=== PATIENT | male | born 2000 | race Caucasian/White ===

== ENCOUNTER → 2019-03-20 09:42 | Outpatient (CLI) | payer BC, SELFPAY ==
--- NOTE | 2019-03-20 09:53 | RAD_ITS ---
STUDY: X-RAY CHEST REASON FOR EXAM: Male, 18 years old. Cough. Shortness of breath. TECHNIQUE: PA and lateral views of the chest. COMPARISON: None. FINDINGS: The lungs are clear and expanded. There is no demonstrated pleural abnormality. Normal size heart. Normal mediastinum and jen. Normal visualized pulmonary arteries. Normal visualized aortic arch and descending thoracic aorta. Normal visualized thoracic spine. Normal visualized ribs, clavicles, and shoulders. There is no demonstrated abnormality of the visualized soft tissue structures of the upper abdomen. RAD/Chest PA and Lateral IMPRESSION: Normal x-ray examination of the chest. Electronically Signed: Salas Mendoza, at 10:19 EST , Service support ,
[2019-03-20 12:33] LABS: Hematocrit 43.8 % (40-54); Hemoglobin 14.2 g/dL (13.0-16.5); Mean Corp Hgb Conc 32.4 g/dL (32-36); Mean Corpuscular Hgb 27.9 pg (27.0-32.0); Mean Corpuscular Volume 86.1 fL (80-94); Mean Platelet Vol. 10.4 fl (6.2-12.0); Platelet Count 299 K/mm3 (150-450); RBC Distribution Width CV 12.4 % (11.6-14.6); RBC Distribution Width SD 39.3 fl (35.1-43.9); Red Blood Count 5.09 M/mm3 (4.6-6.2); White Blood Count 8.3 K/mm3 (4.4-11.0)
[2019-03-20 12:37] LABS: ALB/GLOB Ratio 0.9 RATIO (0.9-2.4); AST(SGOT) 21 U/L (15-37); Alanine Aminotransfer ALT/SGPT 33 U/L (16-61); Albumin, Serum 3.9 g/dL (3.2-5.0); Alkaline Phosphatase 60 U/L (45-117); Anion Gap 8 (5-15); BUN 8 mg/dL (7-18); BUN/Creat Ratio 8.1 RATIO (10-20); Calcium,Total 9.6 mg/dL (8.5-10.1); Chloride 104 mmol/L (98-107); Creatinine, Serum 0.98 mg/dL (0.70-1.30); EST Glomerular Filtration Rate 104 mL/min (>60); Est Glom Filt Rate - Afr Amer 125 mL/min (>60); Globulin 4.5 g/dL (2.2-4.2); Glucose 81 mg/dL (74-106); Potassium 3.8 mmol/L (3.5-5.1); Protein, Total 8.4 g/dL (6.4-8.2); Sodium Level 140 mmol/L (136-145)
== END ==
DX: J20.9 Acute bronchitis, unspecified (principal)
CPT/HCPCS: 36415; 71046; 80053; 85027

== ENCOUNTER 2019-11-11 21:24 | Inpatient (IN) | payer BC, SELFPAY ==
[2019-11-11 21:28] VITALS: PULSE 114; RESP 18; TEMP 36.6; O2SAT 83; BMI 33.3
--- NOTE | 2019-11-11 21:30 | EKG12_ITS ---
Test Reason : OD Blood Pressure : / mmHG Vent. Rate : 121 BPM Atrial Rate : 121 BPM P-R Int : 144 ms QRS Dur : 096 ms QT Int : 310 ms P-R-T Axes : 057 020 051 degrees QTc Int : 440 ms Sinus tachycardia Otherwise normal ECG Confirmed by CECY OWEN, RENNY ([id number]), manuscript editor PETERSON PAYTON ([id number]) on 11/16/2019 8:05:23 AM Referred By: ETHAN Confirmed By:RENNY SAM MD
--- NOTE | 2019-11-11 21:39 | ED.VIS.GEN ---
History of Present Illness Chief Complaint: Overdose Informant: Patient Narrative: 19 year-old male presents with concern for being found unresponsive in his bed. Brought in by EMS. Patient is alert and oriented but is vomiting what appears to be blood. There does appear to be a small area of epistaxis. Patient states that he did insufflate his Percocet this evening. Was given multiple doses of Narcan by EMS. Patient is somewhat hypoxic upon arrival. Denies any chest pain, shortness of breath. Does admit to nausea and vomiting. Denies any abdominal pain or head injury. Past Medical History - Allergies and Home Meds Allergies/Adverse Reactions: Allergies No Known Allergies Allergy (Verified 11/11/19 21:33) Past Medical History: None Surgical History: no surgical history Lives: With Family Smoking Status: Current every day smoker Alcohol: Occasional Drugs: - - opiate Review of Systems General: Denies: Chills, Fever, Sweats Eyes: Denies: Visual changes - bilaterally, Diplopia ENT: Denies: Rhinorrhea, Sore throat Cardiovascular: Denies: Chest pain, Palpitations Respiratory: Denies: Dyspnea, Cough, Dyspnea on exertion Gastrointestinal: Reports: Vomiting. Denies: Abdominal pain, Nausea, Diarrhea, Melena, Hematochezia Genitourinary: Denies: Dysuria, Hematuria, Frequency Musculoskeletal: Denies: Back pain, Extremity Pain Skin: Denies: Rash, Wounds Neurological: Denies: Headache, Weakness, Numbness Physical Exam Vital Signs/Narrative: Vital Signs Temp Pulse Resp Pulse Ox 11/11/19 21:28 97.8 F 114 H 18 83 Inital Vital Signs reviewed: Yes General: Well nourished, Well developed, No Acute Distress Head: Normocephalic, Atraumatic Eyes: Perrl, EOMI ENT: Moist mucous membranes, No rhinorrhea Neck: Supple, Nontender Cardiovascular: Regular rate, Regular rhythm, No murmurs Respiratory: No distress, Chest nontender, - - coarse breathe sounds bilaterally Abdomen: Soft, Nontender, Nondistended, Normal bowel sounds Back: Nontender, Normal Inspection Extremities: Nontender, No edema Skin: Normal color, No rash Neurological: Alert, Oriented x3, Cranial nerves II-XII grossly intact, Normal Strength, Normal Sensation Psychological: Normal affect, Normal Mood Diagnostic/Tx/Re-eval Clinical Impression(s) from Imaging Studies Chest X-Ray 11/11/19 21:57 IMPRESSION: Bilateral pulmonary infiltrates or pulmonary edema greater on the left. Electronically Signed: Brian Merrill MD at 22:05 EDT , Service support , Laboratory Data 11/11/19 11/11/19 11/11/19 21:40 21:40 21:45 WBC 22.4 H RBC 6.01 Hgb 17.2 H Hct 53.0 MCV 88.2 MCH 28.6 MCHC 32.5 RDW Std Deviation 42.4 RDW Coeff of Frank 13.2 Plt Count 315 MPV 10.3 Immature Gran % (Auto) 0.800 Neut % (Auto) 85.5 H Lymph % (Auto) 9.6 L [place] % (Auto) 3.5 Eos % (Auto) 0.3 Baso % (Auto) 0.3 Absolute Neuts (auto) 19.2 H Absolute Lymphs (auto) 2.14 Nucleated RBC % 0 Sodium 138 Potassium 4.1 Chloride 100 Carbon Dioxide 29.0 Anion Gap 9 BUN 12 Creatinine 1.26 Estim Creat Clear Calc 102.65 Est GFR (MDRD) Af Amer 94 Est GFR (MDRD) Non-Af 77 BUN/Creatinine Ratio 9.5 L Glucose 180 H Calcium 8.7 Total Bilirubin 0.50 AST 42 H ALT 50 Alkaline Phosphatase 72 Total Protein 7.7 Albumin 4.1 Globulin 3.6 Albumin/Globulin Ratio 1.1 Urine Opiates Screen Urine Methadone Screen Ur Barbiturates Screen Ur Phencyclidine Scrn Ur Amphetamines Screen U Methamphetamin-MDMA U Benzodiazepines Scrn Urine Cocaine Screen U Cannabinoids Screen Ur Drug Screen Comment Ethyl Alcohol 5.0 11/11/19 22:25 WBC RBC Hgb Hct MCV MCH MCHC RDW Std Deviation RDW Coeff of Frank Plt Count MPV Immature Gran % (Auto) Neut % (Auto) Lymph % (Auto) [place] % (Auto) Eos % (Auto) Baso % (Auto) Absolute Neuts (auto) Absolute Lymphs (auto) Nucleated RBC % Sodium Potassium Chloride Carbon Dioxide Anion Gap BUN Creatinine Estim Creat Clear Calc Est GFR (MDRD) Af Amer Est GFR (MDRD) Non-Af BUN/Creatinine Ratio Glucose Calcium Total Bilirubin AST ALT Alkaline Phosphatase Total Protein Albumin Globulin Albumin/Globulin Ratio Urine Opiates Screen NEGATIVE Urine Methadone Screen NEGATIVE Ur Barbiturates Screen NEGATIVE Ur Phencyclidine Scrn NEGATIVE Ur Amphetamines Screen POSITIVE H U Methamphetamin-MDMA NEGATIVE U Benzodiazepines Scrn NEGATIVE Urine Cocaine Screen NEGATIVE U Cannabinoids Screen POSITIVE H Ur Drug Screen Comment Ethyl Alcohol - Rhythm Strip Rhythm Strip: Sinus Tach Rate: 121 Ectopy: None - EKG Initial EKG Interpretation: Sinus Tachycardia - Sinus tachycardia at 121 bpm. WI and QTC within normal limits. No evidence of ST elevation or depression at this time. - Medical Decision Making Patient hypoxic in the low 80s upon arrival. Actively coughing and spitting up pink frothy sputum. Chest x-ray shows bilateral pulmonary edema. Leukocytosis which is likely reactive. Patient likely experiencing pulmonary edema secondary to Narcan administration for opiate overdose. Patient will be started on high flow nasal cannula. Will be admitted to the ICU for further evaluation and management. - Critical Care Time Critical care time (excluding procedures): 30-74 minutes, Discussing w/Patient &/or Family/Research Physicist, Discussing w/Consultants, Arranging Admission or Transfer, Performing Direct Patient Care at Bedside ED Disposition - Plan for ED Patient: Disposition: Home or Assisted Living Diagnosis: Pulmonary edema, Opiate overdose, Hypoxemia
[2019-11-11] MEDS: 0.9% Normal Saline 1,000 ML 999 ML IV (21:44)
[2019-11-11] MEDS: Ondansetron 4 MG/2 ML Vial IV (21:45)
--- NOTE | 2019-11-11 21:57 | RAD_ITS ---
STUDY: X-RAY CHEST REASON FOR EXAM: Male, 19 years old. FOUND UNRESPONSIVE BY FAMILY, PT ADMITS TO TAKING PERCOCET, SNORTED. TECHNIQUE: AP portable COMPARISON: None. FINDINGS: Diffuse bilateral infiltrates or pulmonary edema greater on the left. There is no demonstrated pleural abnormality. Normal size heart. Normal mediastinum and jen. Normal visualized pulmonary arteries. Normal visualized aortic arch and descending thoracic aorta. Normal visualized thoracic spine. Normal visualized ribs, clavicles, and shoulders. There is no demonstrated abnormality of the visualized soft tissue structures of the upper abdomen. RAD/Chest 1 View (Portable) IMPRESSION: Bilateral pulmonary infiltrates or pulmonary edema greater on the left. Electronically Signed: Brian Merrill MD at 22:05 EDT , Service support ,
[2019-11-11 22:05] LABS: ALB/GLOB Ratio 1.1 RATIO (0.9-2.4); AST(SGOT) 42 U/L (15-37); Alanine Aminotransfer ALT/SGPT 50 U/L (16-61); Albumin, Serum 4.1 g/dL (3.2-5.0); Alkaline Phosphatase 72 U/L (45-117); Anion Gap 9 (5-15); BUN 12 mg/dL (7-18); BUN/Creat Ratio 9.5 RATIO (10-20); Calcium,Total 8.7 mg/dL (8.5-10.1); Chloride 100 mmol/L (98-107); Creatinine, Serum 1.26 mg/dL (0.70-1.30); EST Glomerular Filtration Rate 77 mL/min (>60); Est Glom Filt Rate - Afr Amer 94 mL/min (>60); Estimated Creatinine Clearance 102.65 ml/min; Globulin 3.6 g/dL (2.2-4.2); Glucose 180 mg/dL (74-106); Potassium 4.1 mmol/L (3.5-5.1); Protein, Total 7.7 g/dL (6.4-8.2); Sodium Level 138 mmol/L (136-145)
[2019-11-11 22:08] LABS: Absolute Lymphocyte Count 2.14 X10^3/uL (0.83-4.51); Absolute Neutrophil Count 19.2 X10^3/uL (2.0-7.7); Basophil# 0.06 X10^3/uL; Basophil% 0.3 % (0-1); Eosinophil# 0.07 X10^3/uL; Eosinophils% 0.3 % (0-5); Hemoglobin 17.2 g/dL (13.0-16.5); Lymphocyte # 2.14 X10^3/ul (4.0); Lymphocyte % 9.6 % (19-41); Mean Corp Hgb Conc 32.5 g/dL (32-36); Mean Corpuscular Hgb 28.6 pg (27.0-32.0); Mean Corpuscular Volume 88.2 fL (80-94); Mean Platelet Vol. 10.3 fl (6.2-12.0); Monocyte# 0.79 X10^3/uL; Monocyte% 3.5 % (0-10); NRBC Flagged by Analyzer 0 % (0-5); Neutrophil # 19.15 X10^3/uL (2.7-7.7); Neutrophil % 85.5 % (47-70); Platelet Count 315 K/mm3 (150-450); RBC Distribution Width CV 13.2 % (11.6-14.6); RBC Distribution Width SD 42.4 fl (35.1-43.9); Red Blood Count 6.01 M/mm3 (4.6-6.2); White Blood Count 22.4 K/mm3 (4.4-11.0)
--- NOTE | 2019-11-11 22:49 | HP.PCM_ITS ---
Problem List (1) Opioid overdose Status: Acute Qualifiers: Encounter type: initial encounter Injury intent: undetermined intent Qualified Code(s): T40.2X4A - Poisoning by other opioids, undetermined, initial encounter (2) Acute respiratory failure with hypoxia Status: Acute History of Present Illness Date of Admission: 11/11/19 Chief Complaint: Unresponsiveness, opioid overdose - 1 day The patient is a 19 year old M with no significant past medical history who was apparently in his usual state of health today and was later on found unresponsive. When the EMS squad got to his parents' home, patient appeared to be responsive to painful stimuli and had agonal breathing. He received 2 doses of Narcan. He later improved in his responsiveness. According to the patient, he was playing computer games on his console in his parents house when he snorted 1 percocet. He denied any suicidal ideation. He said he took it to get high. At time of being seen in the ED, patient has been coughing up bloody sputum. He denied any fever but admitted to some chills. Denied any chest pain. He admits to shortness of breath. Vitals in the ED showed temperature of 90 7.8F, heart rate 114, respiratory rate was 18, blood pressure is 149 over 72, SPO2 was 83% on room air. BC count was 22.4, hemoglobin 17.2, platelet count 315, CMP was unremarkable. Urine tox was positive for amphetamines and cannabinoids. Alcohol level was 5.0 Chest x-ray showed bilateral pulmonary infiltrate/pulmonary edema greater on the left. Past Medical History Allergies No Known Allergies Allergy (Verified 11/11/19 21:33) Home Medications: Ambulatory Orders Medication Instructions Recorded NK 11/11/19 Surgical History: no surgical history Lives: With Family Smoking Status: Current every day smoker Tobacco Use: Cigarettes Alcohol: Occasional Drugs: Marijuana, - - opiate - *Family History Maternal History Items: No pertinent history Paternal History Items: No pertinent history Review of Systems Constitutional: Reports: Chills, Malaise, Weakness. Denies: Anorexia, Fever, Weight Change, Fatigue Eyes: Denies: Blurred vision, Cataracts, Conjunctivae Inflammation, Pain, Redness HEENT: Denies: Difficulty Hearing, Difficulty Swallowing, Head Aches, Hearing Changes, Nasal bleeding, Sinus Congestion, Sinus Drainage, Sore Throat Cardiovascular: Denies: Chest Pain, Claudication, Light Headedness, Orthopnea, Palpitations Respiratory: Reports: Cough, Hemoptysis, Shortness of Breath, Shortness of breath at rest, Sputum production Gastrointestinal: Denies: Abdominal Pain, Constipation, Hematemesis, Hematochezia, Nausea, Vomiting Genitourinary: Denies: Dysuria, Frequency, Hematuria, Incontinence Musculoskeletal: Denies: Joint Pain, Joint stiffness, Joint swelling, Joint Tenderness Skin: Denies: Rash, Wounds Neurological: Denies: Balance problems, Blurred vision, Double vision, Focal weakness, Numbness, Tingling Psychiatric: Denies: Anxiety, Depression, Homicidal Ideations, Suicidal Ideations Hematologic/ Lymphatic: Denies: Easy Bruising, Easy Bleeding VTE Information - Inpt Only VTE Present on Admission: No VTE Pharm Prophylaxis ordered?: Yes Patient Problems: Active and Suspected Problems Opioid overdose (Acute) Hypoxia (Acute) Acute respiratory failure with hypoxia (Acute) - Physical Exam Vitals/I&O's: Vital Signs Temp Pulse Resp Pulse Ox 97.8 F 114 H 18 83 11/11/19 21:28 11/11/19 21:28 11/11/19 21:28 11/11/19 21:28 Oxygen Delivery Method Room Air Weight: 111.3 kg Body Mass Index (BMI) 33.3 General: Alert, Oriented x3, Cooperative, No apparent distress, - - on 7L of oxygen HEENT: Atraumatic, PERRLA, EOMI, Normocephalic Oral: Moist Mucosa Neck: Supple Lungs: Clear to auscultation Cardiovascular: Regular rate, Regular Rhythm, Normal S1, Normal S2, No murmurs Abdomen: Bowel Sounds Present, Soft, Non Tender, Non-Distended, No Hepato- splenomegaly, Passing Flatus Extremities: No edema Skin: No rashes Musculoskeletal: No Tenderness to Palpation of Joints or Extremities Lymphatic: No Cervical, Supraclavicular, or Inguinal Adenopathy Neurological: Cranial nerves II-XII grossly intact, Neuro grossly intact Psych/Mental Status: Normal Affect, Appropriate Laboratory Results 11/11/19 21:40: WBC 22.4 H, RBC 6.01, Hgb 17.2 H, Hct 53.0, MCV 88.2, MCH 28.6, MCHC 32.5, RDW Std Deviation 42.4, RDW Coeff of Frank 13.2, Plt Count 315, MPV 10.3, Immature Gran % (Auto) 0.800, Neut % (Auto) 85.5 H, Lymph % (Auto) 9.6 L, [place] % (Auto) 3.5, Eos % (Auto) 0.3, Baso % (Auto) 0.3, Absolute Neuts (auto) 19.2 H, Absolute Lymphs (auto) 2.14, Nucleated RBC % 0 11/11/19 21:40: Sodium 138, Potassium 4.1, Chloride 100, Carbon Dioxide 29.0, Anion Gap 9, BUN 12, Creatinine 1.26, Estim Creat Clear Calc 102.65, Est GFR (MDRD) Af Amer 94, Est GFR (MDRD) Non-Af 77, BUN/Creatinine Ratio 9.5 L, Glucose 180 H, Calcium 8.7, Total Bilirubin 0.50, AST 42 H, ALT 50, Alkaline Phosphatase 72, Total Protein 7.7, Albumin 4.1, Globulin 3.6, Albumin/Globulin Ratio 1.1 11/11/19 21:45: Ethyl Alcohol 5.0 11/11/19 22:25: Urine Opiates Screen Pending, Urine Methadone Screen Pending, Ur Barbiturates Screen Pending, Ur Phencyclidine Scrn Pending, Ur Amphetamines Screen Pending, U Methamphetamin-MDMA Pending, U Benzodiazepines Scrn Pending, Urine Cocaine Screen Pending, U Cannabinoids Screen Pending, Ur Drug Screen Comment Assessment/Plan All Active Problems Opioid overdose (Acute) Hypoxia (Acute) Acute respiratory failure with hypoxia (Acute) 19-year-old male with no significant past medical history comes in after being found unresponsive. 1. Acute hypoxic respiratory failure secondary to acute pulmonary edema from opioid insufflation/inhalation Patient is currently on 7 L of oxygen, chest x-ray showed bilateral pulmonary edema worse on the left COVID 19 testing pending Will admit to ICU, albuterol inhaler q4h, Lasix 40 mg IV x1, Repeat chest x-ray in a.m. If infiltrates are persistent, consider 2D echo to evaluate for cardiomyopathy Cracking Unit Operator consulted 2. Acute opioid overdose status post multiple Narcan treatments Advised to quit, will monitor for opioid withdrawal 3. Nicotine dependence, smokes about half a pack per day, advised to quit 4. Leukocytosis, likely reactive, no signs of sepsis Repeat blood work in a.m. 5. Possible MARIANNA, admitting creatinine of 1.26, previous creatinine in March 2019 was 0.98 Would hold off on giving IV fluids in light of pulmonary edema Will repeat blood work in a.m. 6. DVT prophylaxis, low risk, early ambulation recommended Inpatient E&M: [id number] Init Hosp L3
[2019-11-11 22:50] VITALS: BP 149/72; PULSE 109; RESP 24; O2SAT 96
[2019-11-11 22:55] LABS: Amphetamine Urine VISTA POSITIVE (<1000 ng/mL); Barbiturate Urine VISTA NEGATIVE (< 200 ng/mL); Benzodiazepine Urine VISTA NEGATIVE (< 200 ng/mL); Cocaine Urine VISTA NEGATIVE (< 300 ng/mL); Ecstacy Urine VISTA NEGATIVE (< 500 ng/mL); Methadone Urine VISTA NEGATIVE (< 300 ng/mL); PCP Urine VISTA NEGATIVE (< 25 ng/mL); THC Urine VISTA POSITIVE (< 50 ng/mL); Vista UDS pH Range 6
[2019-11-11 23:30] VITALS: O2SAT 93
[2019-11-11 23:44] VITALS: BP 124/72; PULSE 92; RESP 17; TEMP 36.8; O2SAT 98
[2019-11-12] VITALS (22 sets, daily range): BP systolic 101–141; BP diastolic 54–89; PULSE 63–97; RESP 13–23; TEMP 36.3–37.2; O2SAT 94–100; BMI 31.4
[2019-11-12] MEDS: Furosemide 40 MG/4 ML Vial IV (00:43)
[2019-11-12] MEDS: 0.9% Saline Lock 10 ML Syringe IV ×2 (00:43→06:28)
[2019-11-12 05:49] LABS: Allen Test POS; Blood Gas Specimen Type ART; O2 Delivery Device Nasal Can; SITE L RADIAL; Time Given 2226
[2019-11-12 05:50] LABS: Base Excess -2 mmol/L (-2 to +2); Bicarbonate 22.7 mmol/L (22-26); PO2 65 mmHG (75-100); SO2 92 % (95-99); Total Carbon Dioxide 24 mmol/L; pCO2 38.3 mmHg (35-45); pH 7.38 (7.35-7.45)
[2019-11-12 05:53] LABS: Absolute Lymphocyte Count 1.12 X10^3/uL (0.83-4.51); Absolute Neutrophil Count 21.5 X10^3/uL (2.0-7.7); Basophil# 0.07 X10^3/uL; Basophil% 0.3 % (0-1); Eosinophil# 0.01 X10^3/uL; Hematocrit 48.1 % (40-54); Hemoglobin 15.9 g/dL (13.0-16.5); Lymphocyte # 1.12 X10^3/ul (4.0); Lymphocyte % 4.6 % (19-41); Mean Corp Hgb Conc 33.1 g/dL (32-36); Mean Corpuscular Hgb 28.6 pg (27.0-32.0); Mean Corpuscular Volume 86.5 fL (80-94); Mean Platelet Vol. 10.2 fl (6.2-12.0); Monocyte% 6.9 % (0-10); NRBC Flagged by Analyzer 0 % (0-5); Neutrophil # 21.51 X10^3/uL (2.7-7.7); Neutrophil % 87.5 % (47-70); POSITIVE DIFFERENTIAL YES; Platelet Count 248 K/mm3 (150-450); RBC Distribution Width CV 13.2 % (11.6-14.6); RBC Distribution Width SD 41.3 fl (35.1-43.9); Red Blood Count 5.56 M/mm3 (4.6-6.2); White Blood Count 24.6 K/mm3 (4.4-11.0)
--- NOTE | 2019-11-12 05:55 | RAD_ITS ---
STUDY: X-RAY CHEST REASON FOR EXAM: Male, 19 years old. Hypoxia -- pulmonary edema TECHNIQUE: Single AP portable view of the chest. COMPARISON: Comparison is made with prior study dated November 11, 2019. FINDINGS: EKG electrodes are seen. Persistent airspace disease in the left hemithorax. Residual changes at the right lung base. Further follow-up is recommended. There is no demonstrated pleural abnormality. Normal size heart. Normal mediastinum and jen. Normal visualized pulmonary arteries. Normal visualized aortic arch and descending thoracic aorta. Normal visualized thoracic spine. Normal visualized ribs, clavicles, and shoulders. There is no demonstrated abnormality of the visualized soft tissue structures of the upper abdomen. RAD/Chest 1 View (Portable) IMPRESSION: Persistent airspace disease in the left hemithorax. Differential diagnosis should include atypical pulmonary edema or infiltration. Electronically Signed: Salas Mendoza, at 8:58 EDT , Service support ,
[2019-11-12 06:07] LABS: ALB/GLOB Ratio 1.1 RATIO (0.9-2.4); AST(SGOT) 40 U/L (15-37); Alanine Aminotransfer ALT/SGPT 57 U/L (16-61); Albumin, Serum 3.9 g/dL (3.2-5.0); Alkaline Phosphatase 62 U/L (45-117); Anion Gap 6 (5-15); BUN 12 mg/dL (7-18); BUN/Creat Ratio 11.3 RATIO (10-20); Calcium,Total 8.9 mg/dL (8.5-10.1); Chloride 100 mmol/L (98-107); Creatinine, Serum 1.06 mg/dL (0.70-1.30); EST Glomerular Filtration Rate 95 mL/min (>60); Est Glom Filt Rate - Afr Amer 114 mL/min (>60); Estimated Creatinine Clearance 132.86 ml/min; Globulin 3.6 g/dL (2.2-4.2); Glucose 113 mg/dL (74-106); Potassium 4.5 mmol/L (3.5-5.1); Protein, Total 7.5 g/dL (6.4-8.2); Sodium Level 137 mmol/L (136-145)
[2019-11-12 06:12] LABS: Differential Indicated SCAN CRITERIA MET
[2019-11-12 06:45] LABS: Differential Comment SCANNED
--- NOTE | 2019-11-12 06:52 | CON.PCM_ITS ---
Problem List (1) Opioid overdose Status: Acute Qualifiers: Encounter type: initial encounter Injury intent: accidental or unintentional Qualified Code(s): T40.2X1A - Poisoning by other opioids, accidental (unintentional), initial encounter (2) Hypoxia Status: Acute (3) Acute respiratory failure with hypoxia Status: Acute (4) Pulmonary edema Status: Acute (5) Opiate overdose Status: Acute Reason for Consult Date of Consultation: 11/12/19 Reason for Consultation: Hypoxia and hemoptysis History of Present Illness: The patient is a 19 year old M, with no significant past medical history, who presented to [facility] on 11/11/2019 secondary to being found unresponsive in his bed. Patient reportedly had a small area of epistaxis following reported snorting of Percocets. Patient did receive multiple doses of Narcan, but was still hypoxic. Patient had denied any chest pain or shortness of breath initially. Patient had complained of nausea and vomiting, but denied abdominal pain and head injury. Immediately upon presentation in the ER, patient was noted to be tachycardic at 121 bpm and hypoxic in the 80s. Patient reportedly was coughing and spitting up pink frothy sputum. Chest x-ray showed diffuse bilateral pulmonary edema, left greater than right. Patient was initiated on high flow nasal cannula and admitted to the intensive care unit for monitoring. Overnight, patient has continued to improve. Coughing is becoming less frequent and patient has been able to be weaned to 2 L nasal cannula. Patient continues to report a tightness through his chest, but is not reporting any nausea or vomiting. Prior to the inhalation event, patient stated he felt of his usual health. Patient has not had any fever, chills, nausea or vomiting prior to this event. Patient has not attempted inhalation of drugs previously. Patient does admit to being a frequent marijuana user and a social smoker. Patient has used pain pills previously to get high, but does not believe that he has a problem. 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 Patient states he has been socially isolating in his parents basement and essentially just playing video games. Patient does not have any known COVID contacts. Patient denies any history of asthma or other respiratory complaints. Patient does not believe he has had a previous x-ray. Patient was clear that this was an effort to get high, not to intentionally hurt himself Review of systems otherwise negative from a constitutional, HEENT, respiratory, cardiovascular, GI, genitourinary, musculoskeletal, skin, neurologic, psychiatric and hematologic system unless stated above. Past Medical History Allergies No Known Allergies Allergy (Verified 11/11/19 21:33) Home Medications: Ambulatory Orders Medication Instructions Recorded NK 11/11/19 Surgical History: no surgical history Lives: With Family Smoking Status: Current every day smoker Tobacco Use: Cigarettes, Vapor Alcohol: Occasional Drugs: Marijuana, - - opiate - *Family History Maternal History Items: No pertinent history Paternal History Items: No pertinent history Review of Systems Comment: See HPI Patient Problems: Active and Suspected Problems Opioid overdose (Acute) Hypoxia (Acute) Acute respiratory failure with hypoxia (Acute) Pulmonary edema (Acute) Opiate overdose (Acute) Hypoxemia (Acute) Objective: Multiple chest x-rays evaluated. Patient did have bilateral fluffy infiltrates, left greater than right. No masses or pleural effusions appreciated. - Physical Exam Vitals/I&O's: Vital Signs Temp Pulse Resp BP Pulse Ox 37.1 C 68 20 H 119/75 96 11/12/19 04:00 11/12/19 06:00 11/12/19 06:00 11/12/19 06:00 11/12/19 06:00 Oxygen Flow Rate (L/min) 2 Oxygen Delivery Method Nasal Cannula Weight: 113.307 kg Body Mass Index (BMI) 31.4 Intake and Output for Last 24 Hours 11/10/19 11/11/19 11/12/19 23:59 23:59 23:59 Intake Total 200 / 200 50 / 50 Output Total 1450 / 1450 Balance 200 / 200 -1400 / -1400 General: Alert, Oriented x3, Cooperative, No apparent distress, Well developed, Well nourished HEENT: Atraumatic, PERRLA, EOMI, Normocephalic, - - Mild epistaxis noted in right nostril. Some scleral injection noted Oral: Moist Mucosa, No Gingival or Mucosal Lesions/ Ulcerations, - - Crowded posterior pharynx Neck: Supple, No JVD, No Nodes, Trachea Midline Lungs: No rhonchi, No wheeze, Diminished, Rales - Left greater than right Cardiovascular: Regular rate, Regular Rhythm, Normal S1, Normal S2, No murmurs, No rub noted, No Gallop Abdomen: Bowel Sounds Present, Soft, Non Tender, Non-Distended, Obese Extremities: No clubbing, No cyanosis, No edema, Capillary Refill Less than 3 Seconds Skin: No rashes, No breakdown Musculoskeletal: No Tenderness to Palpation of Joints or Extremities Lymphatic: No Cervical, Supraclavicular, or Inguinal Adenopathy Neurological: Cranial nerves II-XII grossly intact, Neuro grossly intact, Motor Exam 5/5 strength throughout Psych/Mental Status: Alert and oriented to time, place, person, mood and affect Laboratory Results 11/11/19 21:40: WBC 22.4 H, RBC 6.01, Hgb 17.2 H, Hct 53.0, MCV 88.2, MCH 28.6, MCHC 32.5, RDW Std Deviation 42.4, RDW Coeff of Frank 13.2, Plt Count 315, MPV 10.3, Immature Gran % (Auto) 0.800, Neut % (Auto) 85.5 H, Lymph % (Auto) 9.6 L, [place] % (Auto) 3.5, Eos % (Auto) 0.3, Baso % (Auto) 0.3, Absolute Neuts (auto) 19.2 H, Absolute Lymphs (auto) 2.14, Nucleated RBC % 0 11/11/19 21:40: Sodium 138, Potassium 4.1, Chloride 100, Carbon Dioxide 29.0, Anion Gap 9, BUN 12, Creatinine 1.26, Estim Creat Clear Calc 102.65, Est GFR (MDRD) Af Amer 94, Est GFR (MDRD) Non-Af 77, BUN/Creatinine Ratio 9.5 L, Glucose 180 H, Calcium 8.7, Total Bilirubin 0.50, AST 42 H, ALT 50, Alkaline Phosphatase 72, Total Protein 7.7, Albumin 4.1, Globulin 3.6, Albumin/Globulin Ratio 1.1 11/11/19 21:45: Ethyl Alcohol 5.0 11/11/19 22:25: Urine Opiates Screen NEGATIVE, Urine Methadone Screen NEGATIVE, Ur Barbiturates Screen NEGATIVE, Ur Phencyclidine Scrn NEGATIVE, Ur Amphetamines Screen POSITIVE H, U Methamphetamin-MDMA NEGATIVE, U Benzodiazepines Scrn NEGATIVE, Urine Cocaine Screen NEGATIVE, U Cannabinoids Screen POSITIVE H, Ur Drug Screen Comment 11/11/19 22:26: Specimen Type ART, Sample Site L RADIAL, pH 7.38, Bicarbonate Actual 22.7, POC Total CO2 24, Base Excess -2, O2 Saturation 92 L, ABG pCO2 38.3, ABG pO2 65 L, Man Test POS, O2 Delivery Device Nasal Can, Liter Flow 4.0, Blood Gas Notified Whom ED , Blood Gas Notified Time 2226 11/11/19 22:26: pH Pending, Bicarbonate Actual Pending, POC Total CO2 Pending, Base Excess Pending, O2 Saturation Pending, ABG pCO2 Pending, ABG pO2 Pending 11/11/19 23:20: COVID-19 (KENNY) Not Detected 11/12/19 05:30: WBC 24.6 H, RBC 5.56, Hgb 15.9, Hct 48.1, MCV 86.5, MCH 28.6, MCHC 33.1, RDW Std Deviation 41.3, RDW Coeff of Frank 13.2, Plt Count 248, MPV 10.2, Immature Gran % (Auto) 0.700, Neut % (Auto) 87.5 H, Lymph % (Auto) 4.6 L, [place] % (Auto) 6.9, Eos % (Auto) 0.0, Baso % (Auto) 0.3, Absolute Neuts (auto) 21.5 H, Absolute Lymphs (auto) 1.12, Nucleated RBC % 0, Differential Comment SCANNED, Diff Path Review September11/12/19 05:30: Sodium 137, Potassium 4.5, Chloride 100, Carbon Dioxide 31.0, Anion Gap 6, BUN 12, Creatinine 1.06, Estim Creat Clear Calc 132.86, Est GFR (MDRD) Af Amer 114, Est GFR (MDRD) Non-Af 95, BUN/Creatinine Ratio 11.3, Glucose 113 H, Calcium 8.9, Total Bilirubin 0.90, AST 40 H, ALT 57, Alkaline Phosphatase 62, Total Protein 7.5, Albumin 3.9, Globulin 3.6, Albumin/Globulin Ratio 1.1 Current Medications Acetaminophen (Tylenol) 650 mg PO Q6H PRN PRN PRN Reason: Pain Score 1-10/Temp > 100.7 F Albuterol Sulfate (Ventolin Aerosols) 2.5 mg INHALATION Q6HWA.RT CHARLY Clonidine (Catapres) 0.1 mg PO Q8H PRN PRN PRN Reason: RESTLESSNESS Dicyclomine HCl (Bentyl) 20 mg PO Q6H PRN PRN PRN Reason: Abdominal Discomfort Gabapentin (Neurontin) 300 mg PO Q8H PRN PRN PRN Reason: moderate to severe anxiety Hydroxyzine Pamoate (Vistaril Pamoate Capsule) 50 mg PO Q6H PRN PRN PRN Reason: mild anxiety Sodium Chloride () 250 mls @ 15 mls/hr IV .[id number] PRN PRN Reason: Saline Flush Sodium Chloride () 250 mls @ 15 mls/hr IV .[id number] PRN PRN Reason: Additional IVPB Infusion Sodium Chloride () 250 mls @ 15 mls/hr IV .[id number] PRN PRN Reason: Saline Flush Sodium Chloride () 250 mls @ 15 mls/hr IV .[id number] PRN PRN Reason: Additional IVPB Infusion Loperamide HCl (Imodium) 2 mg PO Q4H PRN PRN PRN Reason: LOOSE STOOLS Methocarbamol (Methocarbamol) 1,500 mg PO Q6H PRN PRN PRN Reason: MUSCLE SPASM Nicotine (Nicoderm Cq (Pbkc)) 14 mg TRANSDERM. DAILY CHARLY Last Admin: 11/12/19 00:43 Dose: 14 mg Documented by: Nicotine Polacrilex (Rugby Nicotine (Bkc)) 2 mg PO Q2H PRN PRN PRN Reason: Nicotine Craving Ondansetron HCl (Zofran) 4 mg IV Q8H PRN PRN PRN Reason: NAUSEA/VOMITING Ondansetron HCl (Zofran) 8 mg PO Q8H PRN PRN PRN Reason: NAUSEA Senna/Docusate Sodium (Senokot-S, Cat-Colace) 2 tablet PO DAILY PRN PRN PRN Reason: CONSTIPATION Sodium Chloride () 10 - 40 ml IV UD PRN PRN Reason: SALINE FLUSH Last Admin: 11/12/19 06:28 Dose: 10 ml Documented by: Trazodone HCl (Desyrel) 100 mg PO QHS PRN PRN PRN Reason: INSOMNIA Clinical Impression(s) from Imaging Studies Chest X-Ray 11/11/19 21:57 IMPRESSION: Bilateral pulmonary infiltrates or pulmonary edema greater on the left. Electronically Signed: Brian Merrill MD at 22:05 EDT , Service support , Assessment/Plan Active and Suspected Problems Opioid overdose (Acute) Hypoxia (Acute) Acute respiratory failure with hypoxia (Acute) Pulmonary edema (Acute) Opiate overdose (Acute) Hypoxemia (Acute) RECOMMENDATIONS: 1. Wean supplemental oxygen as tolerated 2. Hold on steroids or positive pressure ventilation for now 3. Probable transfer from the intensive care unit later today 4. Walking oximetry prior to discharge 5. Outpatient complete PFT and follow-up chest x-ray IMPRESSIONS: 1. Acute hypoxic respiratory failure secondary to Percocet inhalation Unclear etiology at this time. Patient did have pink frothy sputum and differential would include: Congestive heart failure, hypersensitivity pneumonitis, acute pulmonary edema from Narcan or diffuse alveolar hemorrhage secondary to Percocet inhalation. Patient's oxygen demands have significantly improved since being in the hospital. Will likely need to monitor to be sure that he does not have rebound effect, appears to be hemodynamically stable enough to leave the intensive care unit. Could obtain an echocardiogram, but given age and comorbidities, it is unlikely that he truly has heart failure and there is an inciting event without other concomitant findings such as lower extremity edema, splinter hemorrhages or history of IV drug use. If patient fails to improve over the next 24 to 48 hours, steroids could be used empirically. 2. Multiple drug use/tobacco abuse/obesity/sedentary lifestyle Complicates care, management, recovery and prognosis. Did discuss cessation of tobacco, marijuana and opiates. Patient appears to be motivated to make changes. Inpatient E&M: 26530 Init Hosp L3
[2019-11-12] MEDS: Acetaminophen 325 MG Tablet 650 MG PO ×2 (08:30→16:51)
--- NOTE | 2019-11-12 10:07 | PCM.PN.HOSP ---
Patient Problems: Active and Suspected Problems Opioid overdose (Acute) Hypoxia (Acute) Acute respiratory failure with hypoxia (Acute) Pulmonary edema (Acute) Opiate overdose (Acute) Hypoxemia (Acute) Subjective: Feeling a little bit better, still with hemoptysis Vitals/I&O's: Vital Signs Temp Pulse Resp BP Pulse Ox 98.7 F 80 23 H 118/76 99 11/12/19 04:00 11/12/19 09:00 11/12/19 09:00 11/12/19 09:00 11/12/19 09:00 Oxygen Flow Rate (L/min) 2 Oxygen Delivery Method Nasal Cannula Weight: 249 lb 12.8 oz Body Mass Index (BMI) 31.4 Intake and Output for Last 24 Hours 11/10/19 11/11/19 11/12/19 23:59 23:59 23:59 Intake Total 200 / 200 50 / 50 Output Total 1450 / 1450 Balance 200 / 200 -1400 / -1400 General: Alert, Oriented x3, Cooperative, No apparent distress HEENT: Atraumatic, PERRLA, EOMI, Normocephalic Oral: Moist Mucosa Neck: Supple, No JVD Lungs: Clear to auscultation, Normal air movement, No rhonchi, No wheeze, No rales, Diminished Cardiovascular: Regular rate, Regular Rhythm, Normal S1, Normal S2, No murmurs Abdomen: Soft, Non Tender, Non-Distended, No Hepato-splenomegaly Extremities: No edema, Capillary Refill Less than 3 Seconds Skin: No rashes, No breakdown Neurological: Neuro grossly intact, Sensory exam intact to light touch and pain Psych/Mental Status: Normal Affect, Appropriate Laboratory Results 11/11/19 21:40: WBC 22.4 H, RBC 6.01, Hgb 17.2 H, Hct 53.0, MCV 88.2, MCH 28.6, MCHC 32.5, RDW Std Deviation 42.4, RDW Coeff of Frank 13.2, Plt Count 315, MPV 10.3, Immature Gran % (Auto) 0.800, Neut % (Auto) 85.5 H, Lymph % (Auto) 9.6 L, [place] % (Auto) 3.5, Eos % (Auto) 0.3, Baso % (Auto) 0.3, Absolute Neuts (auto) 19.2 H, Absolute Lymphs (auto) 2.14, Nucleated RBC % 0 11/11/19 21:40: Sodium 138, Potassium 4.1, Chloride 100, Carbon Dioxide 29.0, Anion Gap 9, BUN 12, Creatinine 1.26, Estim Creat Clear Calc 102.65, Est GFR (MDRD) Af Amer 94, Est GFR (MDRD) Non-Af 77, BUN/Creatinine Ratio 9.5 L, Glucose 180 H, Calcium 8.7, Total Bilirubin 0.50, AST 42 H, ALT 50, Alkaline Phosphatase 72, Total Protein 7.7, Albumin 4.1, Globulin 3.6, Albumin/Globulin Ratio 1.1 11/11/19 21:45: Ethyl Alcohol 5.0 11/11/19 22:25: Urine Opiates Screen NEGATIVE, Urine Methadone Screen NEGATIVE, Ur Barbiturates Screen NEGATIVE, Ur Phencyclidine Scrn NEGATIVE, Ur Amphetamines Screen POSITIVE H, U Methamphetamin-MDMA NEGATIVE, U Benzodiazepines Scrn NEGATIVE, Urine Cocaine Screen NEGATIVE, U Cannabinoids Screen POSITIVE H, Ur Drug Screen Comment 11/11/19 22:26: Specimen Type ART, Sample Site L RADIAL, pH 7.38, Bicarbonate Actual 22.7, POC Total CO2 24, Base Excess -2, O2 Saturation 92 L, ABG pCO2 38.3, ABG pO2 65 L, Man Test POS, O2 Delivery Device Nasal Can, Liter Flow 4.0, Blood Gas Notified Whom ED MD, Blood Gas Notified Time 2226 11/11/19 22:26: pH Pending, Bicarbonate Actual Pending, POC Total CO2 Pending, Base Excess Pending, O2 Saturation Pending, ABG pCO2 Pending, ABG pO2 Pending 11/11/19 23:20: COVID-19 (KENNY) Not Detected 11/12/19 05:30: WBC 24.6 H, RBC 5.56, Hgb 15.9, Hct 48.1, MCV 86.5, MCH 28.6, MCHC 33.1, RDW Std Deviation 41.3, RDW Coeff of Frank 13.2, Plt Count 248, MPV 10.2, Immature Gran % (Auto) 0.700, Neut % (Auto) 87.5 H, Lymph % (Auto) 4.6 L, [place] % (Auto) 6.9, Eos % (Auto) 0.0, Baso % (Auto) 0.3, Absolute Neuts (auto) 21.5 H, Absolute Lymphs (auto) 1.12, Nucleated RBC % 0, Differential Comment SCANNED, Diff Path Review September11/12/19 05:30: Sodium 137, Potassium 4.5, Chloride 100, Carbon Dioxide 31.0, Anion Gap 6, BUN 12, Creatinine 1.06, Estim Creat Clear Calc 132.86, Est GFR (MDRD) Af Amer 114, Est GFR (MDRD) Non-Af 95, BUN/Creatinine Ratio 11.3, Glucose 113 H, Calcium 8.9, Total Bilirubin 0.90, AST 40 H, ALT 57, Alkaline Phosphatase 62, Total Protein 7.5, Albumin 3.9, Globulin 3.6, Albumin/Globulin Ratio 1.1 Current Medications Acetaminophen (Tylenol) 650 mg PO Q6H PRN PRN PRN Reason: Pain Score 1-10/Temp > 100.7 F Last Admin: 11/12/19 08:30 Dose: 650 mg Documented by: Albuterol Sulfate (Ventolin Aerosols) 2.5 mg INHALATION Q2H PRN PRN PRN Reason: WHEEZING Clonidine (Catapres) 0.1 mg PO Q8H PRN PRN PRN Reason: RESTLESSNESS Dicyclomine HCl (Bentyl) 20 mg PO Q6H PRN PRN PRN Reason: Abdominal Discomfort Gabapentin (Neurontin) 300 mg PO Q8H PRN PRN PRN Reason: moderate to severe anxiety Hydroxyzine Pamoate (Vistaril Pamoate Capsule) 50 mg PO Q6H PRN PRN PRN Reason: mild anxiety Sodium Chloride () 250 mls @ 15 mls/hr IV .[id number] PRN PRN Reason: Saline Flush Sodium Chloride () 250 mls @ 15 mls/hr IV .[id number] PRN PRN Reason: Additional IVPB Infusion Sodium Chloride () 250 mls @ 15 mls/hr IV .[id number] PRN PRN Reason: Saline Flush Sodium Chloride () 250 mls @ 15 mls/hr IV .[id number] PRN PRN Reason: Additional IVPB Infusion Loperamide HCl (Imodium) 2 mg PO Q4H PRN PRN PRN Reason: LOOSE STOOLS Methocarbamol (Methocarbamol) 1,500 mg PO Q6H PRN PRN PRN Reason: MUSCLE SPASM Nicotine (Nicoderm Cq (Pbkc)) 14 mg TRANSDERM. DAILY CHARLY Last Admin: 11/12/19 00:43 Dose: 14 mg Documented by: Nicotine Polacrilex (Rugby Nicotine (Bkc)) 2 mg PO Q2H PRN PRN PRN Reason: Nicotine Craving Ondansetron HCl (Zofran) 4 mg IV Q8H PRN PRN PRN Reason: NAUSEA/VOMITING Ondansetron HCl (Zofran) 8 mg PO Q8H PRN PRN PRN Reason: NAUSEA Senna/Docusate Sodium (Senokot-S, Cat-Colace) 2 tablet PO DAILY PRN PRN PRN Reason: CONSTIPATION Sodium Chloride () 10 - 40 ml IV UD PRN PRN Reason: SALINE FLUSH Last Admin: 11/12/19 06:28 Dose: 10 ml Documented by: Trazodone HCl (Desyrel) 100 mg PO QHS PRN PRN PRN Reason: INSOMNIA STROKE Vital Signs/Narrative: Vital Signs Pulse Resp BP Pulse Ox 11/12/19 09:00 80 23 H 118/76 99 11/12/19 08:00 72 18 126/76 H 98 11/12/19 07:00 86 17 116/80 98 Medical Necessity - Tobacco Use Smoking Status: Current every day smoker Tobacco Use: Cigarettes, Vapor Assessment/Plan All Active Problems Opioid overdose (Acute) Hypoxia (Acute) Acute respiratory failure with hypoxia (Acute) Pulmonary edema (Acute) Opiate overdose (Acute) Hypoxemia (Acute) 1. Acute hypoxic respiratory failure secondary to inhaling crushed Percocet with hemoptysis/opiate overdose -Likely pulmonary edema possible pneumonitis -COVID test is negative -He did test positive for amphetamines and marijuana use -Denies significant opiate usage -Okay to transfer to PCU today, continue with oxygen -He received several significant doses of Narcan and EMS on the way to the hospital -Leukocytosis is reactive and I do anticipate that it improved save his admission 2. MARIANNA resolved 3. Tobacco abuse -Discussed cessation -Nicotine patch ordered DVT: Ambulation Inpatient E&M: 22332 Subs Hosp L2
--- NOTE | 2019-11-12 13:35 | CASEMGMT ---
SW met with patient and his significant other. Patient was okay with SW talking in front of his friend. SW introduced self and role at [facility]. SW asked patient about the incident that happened. He said it was a one time thing. He said he is not addicted to anything. He denies any mental health diagnoses or any need for counseling. He currently lives at home with his parents. He said he was about to start a job, but he probably won't have it now because of this incident. Patient denies any further needs at this time. 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
[2019-11-12 21:22] LABS: Magnesium 2.2 mg/dL (1.6-2.6)
[2019-11-13] VITALS (7 sets, daily range): BP systolic 116–122; BP diastolic 63–68; PULSE 66–75; RESP 16–18; TEMP 36.7–36.9; O2SAT 93–100
[2019-11-13 06:19] LABS: Absolute Lymphocyte Count 1.86 X10^3/uL (0.83-4.51); Absolute Neutrophil Count 6.2 X10^3/uL (2.0-7.7); Basophil# 0.06 X10^3/uL; Basophil% 0.7 % (0-1); Eosinophil# 0.19 X10^3/uL; Eosinophils% 2.1 % (0-5); Hemoglobin 14.9 g/dL (13.0-16.5); Lymphocyte # 1.86 X10^3/ul (4.0); Lymphocyte % 20.3 % (19-41); Mean Corp Hgb Conc 33.1 g/dL (32-36); Mean Corpuscular Hgb 28.9 pg (27.0-32.0); Mean Corpuscular Volume 87.4 fL (80-94); Mean Platelet Vol. 10.1 fl (6.2-12.0); Monocyte# 0.83 X10^3/uL; NRBC Flagged by Analyzer 0 % (0-5); Neutrophil # 6.21 X10^3/uL (2.7-7.7); Neutrophil % 67.6 % (47-70); Platelet Count 196 K/mm3 (150-450); RBC Distribution Width CV 13.7 % (11.6-14.6); RBC Distribution Width SD 42.9 fl (35.1-43.9); Red Blood Count 5.15 M/mm3 (4.6-6.2); White Blood Count 9.2 K/mm3 (4.4-11.0)
[2019-11-13 06:57] LABS: Anion Gap 4 (5-15); BUN 13 mg/dL (7-18); Calcium,Total 9.4 mg/dL (8.5-10.1); Chloride 105 mmol/L (98-107); EST Glomerular Filtration Rate 101 mL/min (>60); Est Glom Filt Rate - Afr Amer 122 mL/min (>60); Estimated Creatinine Clearance 140.83 ml/min; Glucose 106 mg/dL (74-106); Potassium 3.9 mmol/L (3.5-5.1); Sodium Level 139 mmol/L (136-145)
--- NOTE | 2019-11-13 07:39 | PN_ITS ---
Subjective: Patient transferred out of the intensive care unit yesterday. Patient feels subjectively improved compared to yesterday. Patient still having mild chest pain, but does believe this is improved. Patient is reporting mild hemoptysis, but this is also improved. General: Alert, Oriented x3, Cooperative, No apparent distress, Well developed, Well nourished, - - Obese. Speaking in full sentences. HEENT: Atraumatic, PERRLA, EOMI, Normocephalic, - - No scleral icterus or injection noted Oral: Moist Mucosa, No Gingival or Mucosal Lesions/ Ulcerations Neck: Supple, No JVD, No Nodes, Trachea Midline Lungs: Normal air movement, No rhonchi, No wheeze, Rales - Mild at the bases, but improves with coughing, - - Symmetric expansion Cardiovascular: Regular rate, Regular Rhythm, Normal S1, Normal S2, No murmurs, No rub noted, No Gallop Abdomen: Bowel Sounds Present, Soft, Non Tender, Non-Distended, Obese Extremities: No clubbing, No cyanosis, No edema, Capillary Refill Less than 3 Seconds Skin: No rashes, No breakdown Musculoskeletal: No Tenderness to Palpation of Joints or Extremities Lymphatic: No Cervical, Supraclavicular, or Inguinal Adenopathy Neurological: Cranial nerves II-XII grossly intact, Neuro grossly intact, Motor Exam 5/5 strength throughout Psych/Mental Status: Alert and oriented to time, place, person, mood and affect Vital Signs Temp Pulse Resp BP Pulse Ox 36.7 C 66 16 116/68 93 11/13/19 04:18 11/13/19 06:53 11/13/19 04:18 11/13/19 04:18 11/13/19 04:18 Oxygen Flow Rate (L/min) 2 Oxygen Delivery Method Room Air Weight: 113.4 kg Body Mass Index (BMI) 31.4 Intake and Output for Last 24 Hours 11/11/19 11/12/19 11/13/19 23:59 23:59 23:59 Intake Total 200 / 200 1150 / 1150 220 / 220 Output Total 1450 / 1450 Balance 200 / 200 -300 / -300 220 / 220 Labs (Last 48 Hours) 11/11/19 11/11/19 11/11/19 21:40 21:40 21:45 WBC 22.4 H RBC 6.01 Hgb 17.2 H Hct 53.0 MCV 88.2 MCH 28.6 MCHC 32.5 RDW Std Deviation 42.4 RDW Coeff of Frank 13.2 Plt Count 315 MPV 10.3 Immature Gran % (Auto) 0.800 Neut % (Auto) 85.5 H Lymph % (Auto) 9.6 L [place] % (Auto) 3.5 Eos % (Auto) 0.3 Baso % (Auto) 0.3 Absolute Neuts (auto) 19.2 H Absolute Lymphs (auto) 2.14 Nucleated RBC % 0 Differential Comment Diff Path Review Specimen Type Sample Site pH Bicarbonate Actual POC Total CO2 Base Excess O2 Saturation O2 % ABG pCO2 ABG pO2 Man Test Respiration Rate O2 Delivery Device Liter Flow Minute Volume Vent Mode Tidal Volume POC PEEP POC Pressure Suppt Pressure High Pressure Low Time High Time Low EPAP IPAP Blood Gas Notified Whom Blood Gas Notified Time Sodium 138 Potassium 4.1 Chloride 100 Carbon Dioxide 29.0 Anion Gap 9 BUN 12 Creatinine 1.26 Estim Creat Clear Calc 102.65 Est GFR (MDRD) Af Amer 94 Est GFR (MDRD) Non-Af 77 BUN/Creatinine Ratio 9.5 L Glucose 180 H Calcium 8.7 Magnesium Total Bilirubin 0.50 AST 42 H ALT 50 Alkaline Phosphatase 72 Total Protein 7.7 Albumin 4.1 Globulin 3.6 Albumin/Globulin Ratio 1.1 Urine Opiates Screen Urine Methadone Screen Ur Barbiturates Screen Ur Phencyclidine Scrn Ur Amphetamines Screen U Methamphetamin-MDMA U Benzodiazepines Scrn Urine Cocaine Screen U Cannabinoids Screen Ur Drug Screen Comment Ethyl Alcohol 5.0 COVID-19 ([facility]) 11/11/19 11/11/19 11/11/19 22:25 22:26 22:26 WBC RBC Hgb Hct MCV MCH MCHC RDW Std Deviation RDW Coeff of Frank Plt Count MPV Immature Gran % (Auto) Neut % (Auto) Lymph % (Auto) [place] % (Auto) Eos % (Auto) Baso % (Auto) Absolute Neuts (auto) Absolute Lymphs (auto) Nucleated RBC % Differential Comment Diff Path Review Specimen Type ART Cancelled Sample Site L RADIAL Cancelled pH 7.38 Cancelled Bicarbonate Actual 22.7 Cancelled POC Total CO2 24 Cancelled Base Excess -2 Cancelled O2 Saturation 92 L Cancelled O2 % Cancelled ABG pCO2 38.3 Cancelled ABG pO2 65 L Cancelled Man Test POS Cancelled Respiration Rate Cancelled O2 Delivery Device Nasal Can Cancelled Liter Flow 4.0 Cancelled Minute Volume Cancelled Vent Mode Cancelled Tidal Volume Cancelled POC PEEP Cancelled POC Pressure Suppt Cancelled Pressure High Cancelled Pressure Low Cancelled Time High Cancelled Time Low Cancelled EPAP Cancelled IPAP Cancelled Blood Gas Notified Whom ED Cancelled Blood Gas Notified Time 2226 Cancelled Sodium Potassium Chloride Carbon Dioxide Anion Gap BUN Creatinine Estim Creat Clear Calc Est GFR (MDRD) Af Amer Est GFR (MDRD) Non-Af BUN/Creatinine Ratio Glucose Calcium Magnesium Total Bilirubin AST ALT Alkaline Phosphatase Total Protein Albumin Globulin Albumin/Globulin Ratio Urine Opiates Screen NEGATIVE Urine Methadone Screen NEGATIVE Ur Barbiturates Screen NEGATIVE Ur Phencyclidine Scrn NEGATIVE Ur Amphetamines Screen POSITIVE H U Methamphetamin-MDMA NEGATIVE U Benzodiazepines Scrn NEGATIVE Urine Cocaine Screen NEGATIVE U Cannabinoids Screen POSITIVE H Ur Drug Screen Comment Ethyl Alcohol COVID-19 ([facility]) 11/11/19 11/12/19 11/12/19 23:20 05:30 05:30 WBC 24.6 H RBC 5.56 Hgb 15.9 Hct 48.1 MCV 86.5 MCH 28.6 MCHC 33.1 RDW Std Deviation 41.3 RDW Coeff of Frank 13.2 Plt Count 248 MPV 10.2 Immature Gran % (Auto) 0.700 Neut % (Auto) 87.5 H Lymph % (Auto) 4.6 L [place] % (Auto) 6.9 Eos % (Auto) 0.0 Baso % (Auto) 0.3 Absolute Neuts (auto) 21.5 H Absolute Lymphs (auto) 1.12 Nucleated RBC % 0 Differential Comment SCANNED Diff Path Review May foll Specimen Type Sample Site pH Bicarbonate Actual POC Total CO2 Base Excess O2 Saturation O2 % ABG pCO2 ABG pO2 Man Test Respiration Rate O2 Delivery Device Liter Flow Minute Volume Vent Mode Tidal Volume POC PEEP POC Pressure Suppt Pressure High Pressure Low Time High Time Low EPAP IPAP Blood Gas Notified Whom Blood Gas Notified Time Sodium 137 Potassium 4.5 Chloride 100 Carbon Dioxide 31.0 Anion Gap 6 BUN 12 Creatinine 1.06 Estim Creat Clear Calc 132.86 Est GFR (MDRD) Af Amer 114 Est GFR (MDRD) Non-Af 95 BUN/Creatinine Ratio 11.3 Glucose 113 H Calcium 8.9 Magnesium Total Bilirubin 0.90 AST 40 H ALT 57 Alkaline Phosphatase 62 Total Protein 7.5 Albumin 3.9 Globulin 3.6 Albumin/Globulin Ratio 1.1 Urine Opiates Screen Urine Methadone Screen Ur Barbiturates Screen Ur Phencyclidine Scrn Ur Amphetamines Screen U Methamphetamin-MDMA U Benzodiazepines Scrn Urine Cocaine Screen U Cannabinoids Screen Ur Drug Screen Comment Ethyl Alcohol COVID-19 ([facility]) Not Detected 11/12/19 11/13/19 11/13/19 05:30 05:57 05:57 WBC 9.2 RBC 5.15 Hgb 14.9 Hct 45.0 MCV 87.4 MCH 28.9 MCHC 33.1 RDW Std Deviation 42.9 RDW Coeff of Frank 13.7 Plt Count 196 MPV 10.1 Immature Gran % (Auto) 0.300 Neut % (Auto) 67.6 Lymph % (Auto) 20.3 [place] % (Auto) 9.0 Eos % (Auto) 2.1 Baso % (Auto) 0.7 Absolute Neuts (auto) 6.2 Absolute Lymphs (auto) 1.86 Nucleated RBC % 0 Differential Comment Diff Path Review Specimen Type Sample Site pH Bicarbonate Actual POC Total CO2 Base Excess O2 Saturation O2 % ABG pCO2 ABG pO2 Man Test Respiration Rate O2 Delivery Device Liter Flow Minute Volume Vent Mode Tidal Volume POC PEEP POC Pressure Suppt Pressure High Pressure Low Time High Time Low EPAP IPAP Blood Gas Notified Whom Blood Gas Notified Time Sodium 139 Potassium 3.9 Chloride 105 Carbon Dioxide 30.0 Anion Gap 4 L BUN 13 Creatinine 1.00 Estim Creat Clear Calc 140.83 Est GFR (MDRD) Af Amer 122 Est GFR (MDRD) Non-Af 101 BUN/Creatinine Ratio 13.0 Glucose 106 Calcium 9.4 Magnesium 2.2 Total Bilirubin AST ALT Alkaline Phosphatase Total Protein Albumin Globulin Albumin/Globulin Ratio Urine Opiates Screen Urine Methadone Screen Ur Barbiturates Screen Ur Phencyclidine Scrn Ur Amphetamines Screen U Methamphetamin-MDMA U Benzodiazepines Scrn Urine Cocaine Screen U Cannabinoids Screen Ur Drug Screen Comment Ethyl Alcohol COVID-19 ([facility]) Clinical Impression(s) from Imaging Studies Chest X-Ray 11/12/19 05:55 IMPRESSION: Persistent airspace disease in the left hemithorax. Differential diagnosis should include atypical pulmonary edema or infiltration. Electronically Signed: Salas Mendoza, at 8:58 EDT , Service support , Medical Necessity - Tobacco Use Smoking Status: Current every day smoker Tobacco Use: Cigarettes, Vapor Assessment/Plan All Active Problems Opioid overdose (Acute) Hypoxia (Acute) Acute respiratory failure with hypoxia (Acute) Pulmonary edema (Acute) Opiate overdose (Acute) Hypoxemia (Acute) RECOMMENDATIONS: 1. Walking oximetry prior to discharge 2. Hold on steroids unless patient desaturates with ambulation 3. Repeat chest x-ray in 4 to 6 weeks with PFT 4. Follow-up in our office in 2 weeks with nurse practitioner to arrange follow-up testing 5. Okay to discharge from a pulmonary perspective if able to tolerate ambulation on room air IMPRESSIONS: 1. Acute hypoxic respiratory failure secondary to Percocet inhalation Unclear exact etiology at this time. Patient did have pink frothy sputum and differential would include: Congestive heart failure, hypersensitivity pneumonitis, acute pulmonary edema from Narcan or diffuse alveolar hemorrhage secondary to Percocet inhalation. Patient's oxygen demands have significantly improved since being in the hospital. Patient should have a walking oximetry. Would not recommend repeat imaging as infiltrates may persist for 4 to 6 weeks. If patient is able to ambulate without supplemental oxygen and maintain saturations, can likely be discharged from a pulmonary perspective. If patient does require supplemental oxygen, 5-day burst of 40 mg of prednisone will be helpful. Anticipate pulmonary function test and repeat chest x-ray as an outpatient. Patient can follow-up with nurse practitioner 2 weeks after discharge. 2. Multiple drug use/tobacco abuse/obesity/sedentary lifestyle Complicates care, management, recovery and prognosis. Did discuss cessation of tobacco, marijuana and opiates. Patient appears to be motivated to make changes. Inpatient E&M: 22102 Subs Hosp L2
[2019-11-13] MEDS: Acetaminophen 325 MG Tablet 650 MG PO (07:48)
--- NOTE | 2019-11-13 09:55 | DCINST_ITS ---
- Discharge Diagnoses Current Active Problems: Current Active and Chronic Problems Opioid overdose (Acute) Hypoxia (Acute) Acute respiratory failure with hypoxia (Acute) Pulmonary edema (Acute) Opiate overdose (Acute) Hypoxemia (Acute) You will use the following diet at home:: Regular Your food should be the consistency of: Regular Your liquids should be the consistency of: Regular/Thin Discharge Activity: Return to Normal Activity Call your doctor if you observe: Fever of 101 or Higher, Shortness of breath, Dizziness, Fainting spells, Swelling in the ankles, Chest pain, Increased palpitations (irregular heartbeat) Allergies/Adverse Reactions: Allergies No Known Allergies Allergy (Verified 11/11/19 21:33) Medications to take at Discharge NK 11/11/19 Primary Care Physician: Mykel Serrato MD [Primary Care Provider] - Please follow up with your Primary Care Physician in: 3-5 days Test Results: Test results from this visit will be discussed in further detail at your follow- up appointment, if applicable. Please Follow Up With: Dulce Maria Mcintyre NP-C When: 2 weeks
--- NOTE | 2019-11-13 10:47 | PCM.DC.SUM ---
Discharge Date and Diagnosis Date of Admission: 11/11/19 Date of Discharge: 11/13/19 Hospital Course and Treatment Imaging Results: CXR: IMPRESSION: Bilateral pulmonary infiltrates or pulmonary edema greater on the left. Consults: ICU Operations: None Procedures: None Summary of Care Provided: Per HPI: The patient is a 19 year old M with no significant past medical history who was apparently in his usual state of health today and was later on found unresponsive. When the EMS squad got to his parents' home, patient appeared to be responsive to painful stimuli and had agonal breathing. He received 2 doses of Narcan. He later improved in his responsiveness. According to the patient, he was playing computer games on his console in his parents house when he snorted 1 percocet. He denied any suicidal ideation. He said he took it to get high. At time of being seen in the ED, patient has been coughing up bloody sputum. He denied any fever but admitted to some chills. Denied any chest pain. He admits to shortness of breath. Vitals in the ED showed temperature of 90 7.8F, heart rate 114, respiratory rate was 18, blood pressure is 149 over 72, SPO2 was 83% on room air. BC count was 22.4, hemoglobin 17.2, platelet count 315, CMP was unremarkable. Urine tox was positive for amphetamines and cannabinoids. Alcohol level was 5.0 Chest x-ray showed bilateral pulmonary infiltrate/pulmonary edema greater on the left. Hospital Course: 1. Acute hypoxic respiratory failure secondary to inhaling crushed Percocet with hemoptysis/opiate overdose/[id number]-old male who lives in his parents basement snorted Percocets to get high. He was found unresponsive and was given multiple doses of Narcan by EMS. He presented with a pulse ox of 83% on room air was placed on 8 L of oxygen initially. He was quickly able to be weaned down to room air and did not require any ambulatory oxygen today prior to discharge. His COVID test was negative. He likely had pulmonary edema with possible pneumonitis possible alveolar hemorrhage secondary to the Narcan and the inhalation of Percocet. He says that he does not use drugs generally and his opiate screen was negative. He had did test positive for amphetamines and marijuana use however. He states that his hemoptysis has improved significantly and is nowhere near what it was when he first came in. He is denying any chest pain at this time and his leukocytosis which had been up into the 20,000 range has returned to normal without any antibiotics, as did his creatinine from 1.26-1 which is likely his baseline. I did discuss with him the plan for discharge and he expressed understanding of the risk and benefits of going home today, and he would like to go home. - Physical Exam Vitals/I&O's: Vital Signs Temp Pulse Resp BP Pulse Ox 98.4 F 70 18 122/63 H 94 11/13/19 09:30 11/13/19 09:30 11/13/19 09:30 11/13/19 09:30 11/13/19 09:45 Oxygen Flow Rate (L/min) [ 0 AMBULATING on Room Air] Oxygen Flow Rate (L/min) [At 0 REST on Room Air] Oxygen Flow Rate (L/min) 2 Oxygen Delivery Method Room Air Weight: 250 lb 0.067 oz Body Mass Index (BMI) 31.4 Intake and Output for Last 24 Hours 11/11/19 11/12/19 11/13/19 23:59 23:59 23:59 Intake Total 200 / 200 1150 / 1150 220 / 220 Output Total 1450 / 1450 Balance 200 / 200 -300 / -300 220 / 220 General: Alert, Oriented x3, Cooperative, No apparent distress HEENT: Atraumatic, PERRLA, EOMI, Normocephalic Oral: Moist Mucosa Neck: Supple, No JVD Lungs: Clear to auscultation, Normal air movement, No rhonchi, No wheeze, No rales, Diminished Cardiovascular: Regular rate, Regular Rhythm, Normal S1, Normal S2, No murmurs Abdomen: Soft, Non Tender, Non-Distended, No Hepato-splenomegaly Extremities: No edema, Capillary Refill Less than 3 Seconds Skin: No rashes, No breakdown Neurological: Neuro grossly intact, Sensory exam intact to light touch and pain Psych/Mental Status: Normal Affect, Appropriate Laboratory Results 11/11/19 22:26: Specimen Type Cancelled, Sample Site Cancelled, pH Cancelled, Bicarbonate Actual Cancelled, POC Total CO2 Cancelled, Base Excess Cancelled, O2 Saturation Cancelled, O2 % Cancelled, ABG pCO2 Cancelled, ABG pO2 Cancelled, Man Test Cancelled, Respiration Rate Cancelled, O2 Delivery Device Cancelled, Liter Flow Cancelled, Minute Volume Cancelled, Vent Mode Cancelled, Tidal Volume Cancelled, POC PEEP Cancelled, POC Pressure Suppt Cancelled, Pressure High Cancelled, Pressure Low Cancelled, Time High Cancelled, Time Low Cancelled, EPAP Cancelled, IPAP Cancelled, Blood Gas Notified Whom Cancelled, Blood Gas Notified Time Cancelled 11/12/19 05:30: Magnesium 2.2 11/13/19 05:57: WBC 9.2, RBC 5.15, Hgb 14.9, Hct 45.0, MCV 87.4, MCH 28.9, MCHC 33.1, RDW Std Deviation 42.9, RDW Coeff of Frank 13.7, Plt Count 196, MPV 10.1, Immature Gran % (Auto) 0.300, Neut % (Auto) 67.6, Lymph % (Auto) 20.3, [place] % (Auto) 9.0, Eos % (Auto) 2.1, Baso % (Auto) 0.7, Absolute Neuts (auto) 6.2, Absolute Lymphs (auto) 1.86, Nucleated RBC % 0 11/13/19 05:57: Sodium 139, Potassium 3.9, Chloride 105, Carbon Dioxide 30.0, Anion Gap 4 L, BUN 13, Creatinine 1.00, Estim Creat Clear Calc 140.83, Est GFR (MDRD) Af Amer 122, Est GFR (MDRD) Non-Af 101, BUN/Creatinine Ratio 13.0, Glucose 106, Calcium 9.4 Discharge Activity: Return to Normal Activity Call your doctor if you observe: Fever of 101 or Higher, Shortness of breath, Dizziness, Fainting spells, Swelling in the ankles, Chest pain, Increased palpitations (irregular heartbeat) Home Medications: Medications to take at Discharge NK 11/11/19 Primary Care Physician: Mykel Serrato MD [Primary Care Provider] - Please follow up with your Primary Care Physician in: 3-5 days Please Follow Up With: Dulce Maria Mcintyre NP-C When: 2 weeks Please Follow Up With: Mykel Serrato MD Disposition: Home Minutes spent on discharge:: 35 Patient Condition:: Stable Medical Necessity - Tobacco Use Smoking Status: Current every day smoker Tobacco Use: Cigarettes, Vapor Meaningful Use Info Meaningful Use Diagnoses (Choose all that apply): None applicable Inpatient E&M: 60619 Disch Hosp
[2019-11-16 09:45] LABS: Pathologist Review Reviewed
== END 2019-11-13 10:31 | disposition home or self-care (01) | DRG 917 ==
LOC: ED 22:19 → ICU 23:14 → PCU 11-12 15:29
PROVIDERS: Admitting Provider Internal Medicine; Emergency Provider Emergency Medicine; Visit Provider Family Medicine
DX: T40.2X1A Poisoning by other opioids, accidental (unintentional), initial encounter (principal); Y92.008 Other place in unspecified non-institutional (private) residence as the place of occurrence of the external cause; J96.01 Acute respiratory failure with hypoxia; N17.9 Acute kidney failure, unspecified; F17.210 Nicotine dependence, cigarettes, uncomplicated; J70.4 Drug-induced interstitial lung disorders, unspecified; E66.9 Obesity, unspecified; F12.90 Cannabis use, unspecified, uncomplicated; Z68.33 Body mass index [BMI] 33.0-33.9, adult
CPT/HCPCS: 36415; 36600; 71045; 80048; 80053; 80307; 80320; 82803; 83735; 85025; 87635; 93005; 99251; 99285; G2023; J7030; A4216; G0463; G0480; J1940; J2405; U0003